=== PATIENT | male | born 1975 | race Caucasian/White ===

== ENCOUNTER 2018-10-27 19:52 | Inpatient (IN) | payer OTHER ==
[~2018-10-27] VITALS: Ht 190.5 cm; Wt 105.2 kg
[2018-10-27 20:10] VITALS: BP 108/66
[2018-10-27] MEDS ORDERED: NOHOMEMEDICATIONS (20:12)
[2018-10-27 20:21] LABS: HEMOGLOBIN 13.5 gm/dL (14.0-18.0); MCH 31.3 pg (26.0-34.0); MCHC 34.8 g/dL (28.0-37.0); MCV 89.9 fL (80.0-100.0); MPV 8.6 fl. (7.2-11.1); NUCLEATED RBCS 0 /100WBC; PLATELET COUNT* 379 thou/uL (150-400); RBC 4.33 mil/uL (4.50-6.00); RDW-CV 12.7 % (10.5-14.5); WBC 16.7 thou/uL (4.0-11.0)
[2018-10-27 20:30] LABS: URINE BLOOD TRACE (Negative); URINE CLARITY CLEAR; URINE COLOR YELLOW; URINE GLUCOSE-RANDOM NEGATIVE (Negative); URINE KETONES NEGATIVE (Negative); URINE LEUKOCYTES-REFLEX NEGATIVE (Negative); URINE NITRITE-REFLEX NEGATIVE (Negative); URINE PROTEIN 1+ (Negative); URINE SPECIFIC GRAVITY 1.025 (1.005-1.030); URINE UROBILINOGEN 0.2 E.U./dl (0.2-1.0)
[2018-10-27 20:33] LABS: ALBUMIN 2.5 g/dL (3.4-5.0); CALCIUM 8.6 mg/dL (8.5-10.1); CREATININE 1.2 mg/dL (0.6-1.3); POTASSIUM 3.9 mmol/L (3.5-5.1); TOTAL BILIRUBIN 0.7 mg/dL (<0.1-1.0); TOTAL PROTEIN 8.2 g/dL (6.4-8.2)
[2018-10-27 20:37] LABS: ICTOTEST (BILI CONFIRMATORY) Negative (Negative); URINE BILIRUBIN 1+ (Negative)
[2018-10-27 20:41] LABS: ABSOLUTE LYMPHOCYTES 1.7 thou/uL (0.8-5.3); ABSOLUTE MONOCYTES 0.8 thou/uL (0.0-1.2); ABSOLUTE NEUTROPHILS 14.2 thou/uL (1.6-8.1); PLATELET ESTIMATE ADEQUATE
[2018-10-27 20:53] LABS: SQUAMOUS 0-3 Few /LPF (0-3)
[2018-10-27 20:54] LABS: BACTERIA-REFLEX 1-9 Few /HPF (None Seen); CASTS None Seen /LPF (None Seen); CRYSTALS None Seen /LPF (None Seen); URINE RBC 0-2 Rare /HPF (0-2); URINE WBC-REFLEX 0-5 Rare /HPF (0-5)
[2018-10-27 23:26] LABS: APTT 26.6 Seconds (25.0-31.3); INR 1.1; PROTIME 11.4 Seconds (9.20-11.50)
[2018-10-27 23:54] VITALS: BP 100/64
[2018-10-28] VITALS (16 sets, daily range): BP systolic 80–107; BP diastolic 43–72
--- NOTE | 2018-10-28 03:37 | NUR ---
PT ARRIVED FROM ER AROUND 0000 WITH AT BEDSIDE, AND WALKED OVER TO BED WITH NO ISSUES. ASSESSMENT COMPLETED CHARTED. ABLE TO MAKE NEEDS KNOWN. UP AD CHANTE. C/O MILD PAIN AFTER PAIN MEDICATION FROM ER. PT RESTING IN BED AT THIS TIME. GIVEN PRN PAIN MEDICATIONS PER REQUEST. WILL CONTINUE TO MONITOR.
[2018-10-28 05:07] LABS: HEMATOCRIT 35.1 % (42.0-52.0); HEMOGLOBIN 11.7 gm/dL (14.0-18.0); MCH 30.5 pg (26.0-34.0); MCHC 33.4 g/dL (28.0-37.0); MCV 91.3 fL (80.0-100.0); MPV 8.9 fl. (7.2-11.1); RBC 3.85 mil/uL (4.50-6.00); RDW-CV 12.8 % (10.5-14.5); WBC 14.5 thou/uL (4.0-11.0)
[2018-10-28 05:51] LABS: ALBUMIN 1.9 g/dL (3.4-5.0); CALCIUM 7.8 mg/dL (8.5-10.1); CREATININE 1.1 mg/dL (0.6-1.3); MAGNESIUM 1.8 mg/dL (1.8-2.4); POTASSIUM 3.7 mmol/L (3.5-5.1); TOTAL BILIRUBIN 0.6 mg/dL (<0.1-1.0); TOTAL PROTEIN 7.1 g/dL (6.4-8.2)
--- NOTE | 2018-10-28 10:48 | EKG ---
[place] [address] ELECTROCARDIOGRAM REPORT Name: HUTCHINSONENLSON Room: [address] ADM IN .R.#: [id number] Admission: 10/27/18 Attend Phys: John West DO Discharge: Date of : 77 Report #: [id number] THIS REPORT FOR: //name// [facility] ED Test Date: 2018-10-27 Test Time: 22:13:20 Pat Name: NELSON HUTCHINSON Department: Room: [facility] Gender: M Hebrew Teacher: JULIO CESAR : 1975 Requested By: Francine Hinlke Order Number: [id number] MD: Demar Chapin Measurements Intervals [place] Rate: 92 P: 28 WI: 125 QRS: 10 QRSD: 87 T: 37 QT: 349 QTc: 432 Interpretive Statements Sinus rhythm RSR' in V1 or V2, probably normal variant No previous ECG available for comparison Electronically Signed On 10-28-2018 10:48:22 CDT by Demar Chapin [email or web address] <ELECTRONICALLY SIGNED> By: Demar Chapin MD, [facility] 10/28/18 1048 2213 12 Demar Chapin MD, FACC /EPI
--- NOTE | 2018-10-28 16:17 | NUR ---
PT PROGRESSING TOWARDS GOALS THIS SHIFT. DRAIN PLACED TO ABCESS TODAY. DEPENDENT DRAINAGE WITHOUT DIFFICULTY. PAIN MANAGED WITH PRN DILAUDID. PRN TORADOL ADDED TO ASSIST WITH PAIN MANAGEMENT AND FEVERS. T-MAX 102 THIS SHIFT. NO OTHER CONCERNS AT THIS TIME. CLWR. WCTM.
[2018-10-29 04:39] LABS: HEMATOCRIT 38.7 % (42.0-52.0); HEMOGLOBIN 12.8 gm/dL (14.0-18.0); MCH 30.5 pg (26.0-34.0); MCV 92.2 fL (80.0-100.0); RBC 4.2 mil/uL (4.50-6.00); WBC 15.7 thou/uL (4.0-11.0)
[2018-10-29 04:47] LABS: CALCIUM 8.3 mg/dL (8.5-10.1); CREATININE 1.3 mg/dL (0.6-1.3); MAGNESIUM 2.1 mg/dL (1.8-2.4); PHOSPHORUS* 4.1 mg/dL (2.5-4.9); POTASSIUM 3.5 mmol/L (3.5-5.1); TOTAL BILIRUBIN 0.5 mg/dL (<0.1-1.0); TOTAL PROTEIN 7.1 g/dL (6.4-8.2)
[2018-10-29 07:27] VITALS: BP 98/63
--- NOTE | 2018-10-29 14:00 | NUR ---
ASSUMED CARE OF PT AROUND 0730 THIS AM.REFER TO ASSESSMENT. PT PAIN MANAGED WITH PRN PAIN MEDICATION. TOLERATING CLEAR LIQUID DIET. REPORT GIVEN TO RECEIVING RN AT THIS TIME. NO OTHER CONCERNS AT THIS TIME. CLWR. WCTM.
--- NOTE | 2018-10-29 17:06 | NUR ---
ASSUMED CARE OF PATIENT AT APPROX 1400. PATIENT REMAINS ALERT AND OREINTED X4. VITALS REMAIN STABLE ON ROOM AIR. COMPLAINT OF PAIN ADDRESSED WITH IV DILAUDID. NO OTHER COMPLAINTS AT THIS TIME. RESTING COMFORTABLY IN BED. FLUIDS AND ANTIBIOTICS INFUSING ORDERED. HOURLY ROUNDS COMPLETED. CALL LIGHT WITHIN REACH. NURSING WILL CONTINUE TO MONITOR.
[2018-10-29 20:00] VITALS: BP 108/67
--- NOTE | 2018-10-30 03:05 | NUR ---
RECIEVED REPORT AND ASSUMED CARE AT 1900. VITAL SIGNS WERE STABLE. PT IS UP ADLIB. PT HAS SOME LOWER RIGHT ABD PAIN AND PRN PAIN MEDS GIVEN ORDERED. ASSESSMENT COMPLETED DISCUSSED PLAN OF CARE AND PT UNDERSTANDS. BED LOCKED AND CALL LIGHT WITHIN REACH. HOURLY ROUNDING DONE AND ALL NEEDS MET. NURSING WILL CONTINUE TO MONITOR.
[2018-10-30 07:11] LABS: HEMATOCRIT 39.2 % (42.0-52.0); HEMOGLOBIN 13.3 gm/dL (14.0-18.0); MCH 30.8 pg (26.0-34.0); MCHC 33.9 g/dL (28.0-37.0); MCV 90.7 fL (80.0-100.0); RBC 4.33 mil/uL (4.50-6.00); RDW-CV 12.9 % (10.5-14.5); WBC 15.8 thou/uL (4.0-11.0)
[2018-10-30 07:25] LABS: CALCIUM 8.1 mg/dL (8.5-10.1); CREATININE 1.2 mg/dL (0.6-1.3); MAGNESIUM 1.9 mg/dL (1.8-2.4); PHOSPHORUS* 3.6 mg/dL (2.5-4.9); POTASSIUM 3.5 mmol/L (3.5-5.1); TOTAL BILIRUBIN 0.4 mg/dL (<0.1-1.0); TOTAL PROTEIN 7.2 g/dL (6.4-8.2)
[2018-10-30 08:00] VITALS: BP 108/68
--- NOTE | 2018-10-30 12:28 | NUR ---
AM ASSESSMENT AND VITAL SIGNS COMPLETED DOCUMENTED. PT HAS HYPOACTIVE BOWEL SOUNDS, ABDOMEN IS ROUND, POSSIBLY DISTENDED. PRN PAIN AND NAUSEA MEDICATIONS GIVEN. SCHEDULED PROTONIX AND REGLAN STARTED TODAY. PT ENCOURAGED TO WALK IN THE HALLS FREQUENTLY TO INCREASE BOWEL MOTILITY. HOURLY ROUNDING CONTINUES.
[2018-10-30 13:32] VITALS: BP 110/71
--- NOTE | 2018-10-30 14:25 | NUR ---
PT.RESTING IN BED. HE SAID HE LIVES WITH HIS AND CHILDREN. IS NORMALLY INDEPENDENT. WORKS PARTS DEPARTMENT SUPERVISOR. HAS QUESTIONS ABOUT WHEN HE'LL HAVE SURGERY, WHEN HE CAN RETURN TO WORK,ETC. TOLD HIM HIS WOULD BE THE BEST ONE TO ASK THOSE QUESTIONS. GAVE HIM A PACKET FOR THE UNINSURED. TOLD HIM HE COULD ALSO OBTAIN A TRACEY APPLICATION FROM ADMITTING. HE SAID HE WOULD BE GLAD TO SET UP A PAYMENT PLAN OR WHATEVER HE NEEDS TO DO. TOLD HIM TO CALL BUSINESS OFFICE WHEN RECEIVES FIRST BILL. PASSED ALONG HIS QUESTIONS TO NURSING.
[2018-10-30 22:45] VITALS: BP 95/56
[2018-10-31 00:30] VITALS: BP 113/61
[2018-10-31 04:00] VITALS: BP 103/67
[2018-10-31 04:03] LABS: HEMATOCRIT 39.6 % (42.0-52.0); HEMOGLOBIN 13.3 gm/dL (14.0-18.0); MCH 30.3 pg (26.0-34.0); MCHC 33.6 g/dL (28.0-37.0); MCV 90.1 fL (80.0-100.0); MPV 8.4 fl. (7.2-11.1); NUCLEATED RBCS 0 /100WBC; PLATELET COUNT* 414 thou/uL (150-400); RDW-CV 13.1 % (10.5-14.5); WBC 13.1 thou/uL (4.0-11.0)
[2018-10-31 04:22] LABS: CALCIUM 8.3 mg/dL (8.5-10.1); CREATININE 1.3 mg/dL (0.6-1.3); MAGNESIUM 1.8 mg/dL (1.8-2.4); PHOSPHORUS* 4.2 mg/dL (2.5-4.9); POTASSIUM 3.2 mmol/L (3.5-5.1)
[2018-10-31 05:39] LABS: ABSOLUTE MONOCYTES 0.9 thou/uL (0.0-1.2); ABSOLUTE NEUTROPHILS 11.1 thou/uL (1.6-8.1); ATYPICAL LYMPHS 1 %; PLATELET ESTIMATE INCREASED
[2018-10-31 07:40] VITALS: BP 105/68
--- NOTE | 2018-10-31 07:58 | NUR ---
PATIENT HAS SLEPT WELL MOST OF THE NIGHT. VSS ON RA. PAIN CONTROLLED WITH ORAL PAIN MEDICATION AND PAIN HAS BEEN LOW PER PATIENT. GRAVITY DRAIN IN PLACE WITH MODERATE GREEN DRAINAGE. PATIENT REMAINS ON CLEAR LIQUID DIET AT THIS TIME WITH ICE CHIPS. NO NAUSEA OR VOMITING. IV IN LEFT AC-D5 1/2 NS @ 75ML/HR. NO NAUSEA OR VOMITING. PATIENT INSTRUCTED TO USE CALL LIGHT WHEN NEEDING ASSISTANCE. HOURLY ROUNDS MADE. WILL CONTINUE WITH PLAN OF CARE AND NURSING TO MONITOR.
[2018-10-31 15:46] VITALS: BP 100/64
--- NOTE | 2018-10-31 17:28 | NUR ---
ASSUMED CARE OF PATIENT AT APPROX 0730. ALERT AND ORIENTED X4. ASSESSMENT COMPLETED AND CHARTED. VSS ON ROOM AIR. NO COMPLAINTS OF NAUSEA AND TOLERATED CLEAR LIQUID DIET. FLUIDS AND ANTIBIOTICS INFUSED ORDERED. POTASSIUM REPLACED ORDERED. PAIN HAS BEEN MINIMAL AND MANAGED WITH CONSERVATIVE ORAL PAIN MEDICATION. PATIENT UP AD CHANTE. MINIMAL PURULENT DRAINAGE OF 50CC OUT OF ABDOMINAL DRAIN THIS SHIFT. HOURLY ROUNDS COMPLETED. CALL LIGHT WITHIN REACH. NURSING WILL CONTINUE TO MONITOR.
[2018-11-01 04:30] LABS: HEMOGLOBIN 13.8 gm/dL (14.0-18.0); MCH 30.5 pg (26.0-34.0); MCHC 33.7 g/dL (28.0-37.0); MCV 90.4 fL (80.0-100.0); MPV 8.3 fl. (7.2-11.1); RBC 4.53 mil/uL (4.50-6.00); RDW-CV 12.9 % (10.5-14.5); WBC 13.8 thou/uL (4.0-11.0)
[2018-11-01 04:44] LABS: CALCIUM 8.2 mg/dL (8.5-10.1); CREATININE 1.3 mg/dL (0.6-1.3); PHOSPHORUS* 4.3 mg/dL (2.5-4.9); POTASSIUM 3.7 mmol/L (3.5-5.1)
--- NOTE | 2018-11-01 06:48 | NUR ---
PATIENT HAS SLEPT WELL THROUGHOUT THE NIGHT. VSS ON RA. PAIN CONTROLLED WITH ORAL AND IV MEDICATIONS AND CHARTED. PATIENT IS UP AD-CHANTE AND STEADY. PATIENT HAS REMAINED NPO SINCE MIDNIGHT. GRAVITY DRAIN IN PLACE WITH MODERATE AMOUNT OF DRAINAGE. IV IN LEFT AC-D5 NS @75ML/HR. PATIENT INSTRUCTED TO USE CALL LIGHT WHEN NEEDING ASSISTANCE. HOURLY ROUNDS MADE. WILL CONTINUE WITH PLAN OF CARE AND NURSING TO MONITOR.
[2018-11-01 08:10] VITALS: BP 105/61
[2018-11-01 17:02] VITALS: BP 117/69
--- NOTE | 2018-11-01 18:34 | NUR ---
ASSUMED CARE OF PATIENT AT APPROXM 0730. ALERT AND ORIENTED X4. ASSESSMENT COMPLETED AND CHARTED. VSS ON ROOM AIR. MINIMAL COMPLAINTS OF PAIN AND GIVEN ORAL AND IV MEDICATION TODAY. FLUIDS AND ANTIBIOTICS INFUSED ORDERED. MINIMAL DRAINAGE FROM GRAVITY DRAIN TODAY, COLOR OF DRAINAGE CHANGED FROM A PURULENT TO A GREENISH COLOR. DIET ADVANCED TO FULL LIQUIDS AND TOLERATING WELL. PATIENT UP AD CHANTE. HOURLY ROUNDS COMPLETED. CALL LIGHT WITHIN REACH. NURSING WILL CONTINUE TO MONITOR.
[2018-11-01 21:45] VITALS: BP 117/61
--- NOTE | 2018-11-02 03:52 | NUR ---
ASSUMED CARE AT START OF SHIFT PT RESTING WELL DENIES PAIN , VOIDING WELL DRAIN WITH SCANT AMOUNT OF GREEN LIKE OUTPUT, IV FLUIDS INFUSING WELL. NO CHANGES NOTED IN EARLIER ASSESSMENT, RESTED WELL THROUHGOUT HOURLY ROUNDS.
[2018-11-02 04:15] LABS: HEMATOCRIT 38.3 % (42.0-52.0); HEMOGLOBIN 12.8 gm/dL (14.0-18.0); MCH 30.5 pg (26.0-34.0); MCHC 33.4 g/dL (28.0-37.0); MCV 91.1 fL (80.0-100.0); MPV 8.3 fl. (7.2-11.1); RBC 4.21 mil/uL (4.50-6.00); WBC 10.2 thou/uL (4.0-11.0)
[2018-11-02 04:26] LABS: CALCIUM 8.4 mg/dL (8.5-10.1); CREATININE 1.2 mg/dL (0.6-1.3); MAGNESIUM 2.1 mg/dL (1.8-2.4); PHOSPHORUS* 4.1 mg/dL (2.5-4.9); POTASSIUM 3.2 mmol/L (3.5-5.1)
[2018-11-02 08:30] VITALS: BP 116/79
--- NOTE | 2018-11-02 14:49 | NUR ---
DISCUSSED ANTIBIOTICS WITH AND COSTS OF THEM. SHE IS ZOILA TO PRESCRIBE THE ONES HE WILL GO HOME HOME ON TO TAKE HERE FOR ONE DAY. SHE SPOKE WITH PATIENT.
[2018-11-02 15:45] VITALS: BP 117/59
--- NOTE | 2018-11-02 19:32 | NUR ---
I ASSUMED CARE OF THE PATIENT AT 0700. HE IS ALERT AND ORIENTED X4 AND IS UP AD CHANTE. BED IS IN THE LOW LOCKED POSITION AND CALL LIGHT IS IN REACH. HOURLY ROUNDING IS COMPLETED AND PATIENT NEEDS ARE MET. PAIN IS DENIED. FAMILY IS AT THE BEDSIDE OFF AND ON. PATIENT EDUCATION IS COMPLETED. CELLULITIS ON RIGHT SIDE IS MARKED AND PATIENT IS PROGRESSING TOWARD GOALS.
[2018-11-02 19:50] VITALS: BP 118/69
[2018-11-03 04:28] LABS: HEMATOCRIT 37.6 % (42.0-52.0); HEMOGLOBIN 12.9 gm/dL (14.0-18.0); MCH 30.9 pg (26.0-34.0); MCHC 34.2 g/dL (28.0-37.0); MCV 90.3 fL (80.0-100.0); RBC 4.17 mil/uL (4.50-6.00); RDW-CV 13.1 % (10.5-14.5); WBC 10.2 thou/uL (4.0-11.0)
[2018-11-03 04:34] LABS: CALCIUM 8.7 mg/dL (8.5-10.1); POTASSIUM 3.3 mmol/L (3.5-5.1)
[2018-11-03 08:33] VITALS: BP 112/65
--- NOTE | 2018-11-03 09:00 | NUR ---
REC'D REPORT FROM NOC RN, ASSUMED CARE OF PATIENT APPROX 0730. A&OX4, ABLE TO COMMUNICATE NEEDS TO STAFF. ASSESSMENT COMPLETE AND VS OBTAINED. MED/SURG STATUS. O2 SATS 97% RA. UP AD CHANTE IN ROOM AND HALLWAY WITH NONSKID SHOES ON BLE. C/O MILD PAIN 2/10 IN R ABD NEAR DRAIN SITE. ATE APPROX 1/2 OF HIS BREAKFAST. STATES NO NAUSEA OR PAIN AFTER BREAKFAST. CALL LIGHT WITHIN REACH. HOURLY ROUNDING FOR SAFETY AND PATIENT NEEDS.
[2018-11-03 15:12] VITALS: BP 112/65
[2018-11-03] MEDS ORDERED: OXYCODONE HCL 55 MG PO (15:25)
[2018-11-03] MEDS ORDERED: FLAGYL500 M1 PO (15:27)
[2018-11-03] MEDS ORDERED: BACTRIM DS TAB1 EACH PO (15:29)
== END 2018-11-03 15:55 | disposition home or self-care (01) | DRG 372 ==
LOC: M.ERS 19:52 → M.TBA-ER 22:47 → M.ERS 22:47 → M.ORTHSURG 23:07 → M.TBA-ER 23:07 → M.ORTHSURG 10-28
PROVIDERS: Nurse Practitioner Family; Surgery; ADMIT Surgery
PROC: 0H97X0Z Drainage of Abdomen Skin with Drainage Device, External Approach (ICD-10-PCS; principal; 2018-10-28)
DX: K35.33 Acute appendicitis with perforation, localized peritonitis, and gangrene, with abscess (principal); K56.609 Unspecified intestinal obstruction, unspecified as to partial versus complete obstruction; F17.210 Nicotine dependence, cigarettes, uncomplicated; Z79.899 Other long term (current) drug therapy

== ENCOUNTER → 2018-12-26 | Day surgery (SDC) | payer OTHER ==
[~2018-12-26] MED LIST: BACTRIM DS TAB1 EACH PO; FLAGYL500 M1 PO; NOHOMEMEDICATIONS; OXYCODONE HCL 55 MG PO
[2018-12-26 07:57] LABS: HEMOGLOBIN 15.4 gm/dL (14.0-18.0); MCH 31.8 pg (26.0-34.0); MCHC 35.1 g/dL (28.0-37.0); MCV 90.7 fL (80.0-100.0); RBC 4.85 mil/uL (4.50-6.00); RDW-CV 14.1 % (10.5-14.5); WBC 7.5 thou/uL (4.0-11.0)
[2018-12-26 08:08] LABS: CALCIUM 8.8 mg/dL (8.5-10.1); POTASSIUM 4.3 mmol/L (3.5-5.1)
[2018-12-26 08:12] LABS: ALBUMIN 3.5 g/dL (3.4-5.0); TOTAL BILIRUBIN 0.4 mg/dL (<0.1-1.0)
--- NOTE | 2018-12-28 13:07 | PATH ---
[address] [address] PATHOLOGY RPT PROCEDURE Name: NELSON HOWARD Room: [facility] M.R.#: [id number] Admission: 12/26/18 Date of : 77 Discharge: Report #: [id number] Path Case #: [id number] [facility] Accession Number: [id number] . 01 Material submitted: . appendix - APPENDIX . 01 Clinician provided ICD-10: K35.32 . 01 Clinical history: . Perforated appendicitis . 02 Diagnosis: Appendix: - Acute appendicitis, periappendicitis and serositis with evidence of perforation including focal foreign body type granulomatous response. See comment. (KERVIN/db; 12/27/2018) LBQ/12/28/2018 . 02 Comment: Review of Dr. Williamson's operative report dated 12/26/2018 reveals an intraoperative finding of a recent perforated appendicitis with the appendix base found to be completely separate from the body of the appendix. (KERVIN/db; 12/27/2018) . 02 Electronically signed: . Bernabe Caraballo MD, Pathologist NPI- [id number] . 01 Gross description: . Received in formalin, labeled "Nelson Howard, appendix", is an intact appendix (3.2 cm length x 0.5 cm diameter) and attached mesoappendix (4.2 x 1.6 x 1.0 cm). The proximal resection margin is closed by cautery artifacts and the proximal mesoappendix by a linear staple line measuring 1.5 cm in length. These and the adjacent serosa is inked black. The serosa is carvalho-brown with no discrete perforation. The lumen is not dilated. The wall has an average thickness of 0.2 cm. No discrete fecal material or fecalith is identified. The heidi-appendiceal soft tissue has a yellow cut surface. The specimen is entirely submitted as follows: A1. Proximal margin and contiguous cross sections. A2. Mid appendix, contiguous section. A3. Distal appendix, perpendicular bisected. ([facility]; 12/26/2018) [facility] . 02 Pathologist provided ICD-10: [place] [address] PATHOLOGY RPT PROCEDURE Name: NELSON HOWARD Room: [facility]#: [id number] Admission: 12/26/18 Date of : 77 Discharge: Report #: [id number] Path Case #: [id number] K35.80 . 02 [facility] . [id number] Specimen Comment: A courtesy copy of this report has been sent to Specimen Comment: [phone]. Specimen Comment: Report sent to Performed at: [address], [place] [id number] MD Vidal Nicole MD Phone: [phone] Performed at: [address] [facility] [address], [place], [place] [id number] MD Bernabe Caraballo MD Phone: [phone]
--- NOTE | 2018-12-30 11:05 | OP ---
[address] [address] OPERATIVE REPORT Name: NELSON HUTCHINSON Room: [facility].#: [id number] Admission: 12/26/18 Attend Phys: Krista Williamson DO Discharge: Date of : 77 Report #: [id number] THIS REPORT FOR: //name// CC: Krista OJEDA physician/PCP DATE OF SERVICE: 12/26/2018 PREOPERATIVE DIAGNOSIS: Recent perforated appendicitis. POSTOPERATIVE DIAGNOSIS: Recent perforated appendicitis. FINDINGS: Evidence of old abscess in the right lower quadrant. There were multiple dense adhesions between the small bowel in the right lower quadrant. Appendix base was found to be completely separate from the body of the appendix. SURGEON: Krista Williamson D.O. CO-SURGEON: Edda Salmon, PGY1. [employer] ADMINISTRATOR: DORETHA Cortez, student. PROCEDURE PERFORMED: Laparoscopic appendectomy and lysis of adhesions, less than 30 minutes. ANESTHESIA: General endotracheal and local. ESTIMATED BLOOD LOSS: 3. DRAINS: None. SPECIMENS: Appendix. COMPLICATIONS: None. CONDITION: Stable. DISPOSITION: PACU to home. HISTORY OF PRESENT ILLNESS: The patient is a very pleasant 43-year-old gentleman, who presented to the hospital approximately 8 weeks ago with about a week of abdominal pain. He was found on CAT scan to have perforated appendicitis with a very large contained abscess in the right lower quadrant. He was admitted to the hospital and underwent successful IR drainage of the abscess. He completed a course of antibiotics and was discharged to home. He has done well in the preceding weeks and is now ready [place] [address] OPERATIVE REPORT Name: NELSON HUTCHINSON [id number] Admission: 12/26/18 Attend Phys: Krista Williamson DO Discharge: Date of : 77 Report #: [id number] discussed included bleeding, infection, pain, scar formation, injury to bowel or bladder, need for an open procedure, need for further surgery and risks of general anesthesia. The patient understood these risks and elected to proceed. DESCRIPTION OF PROCEDURE: The patient was brought to the operating room. He was laid supine on the operating room table. SCDs were placed on bilateral lower extremities. Ancef was given in the perioperative period. General endotracheal anesthesia was induced by anesthesia without difficulty. Abdomen was prepped and draped in standard sterile fashion. Timeout was performed to verify patient and procedure. 10 mL of 0.5% Marcaine were injected in the infraumbilical area. Incision was made with #11 blade. Cautery was used for hemostasis. S retractors were used to visualize the fascia. Fascia was grasped and elevated between 2 Kochers. Fascia was incised using cautery. Peritoneum was tented between 2 Corina clamps and was incised using Metzenbaums. Finger was gently introduced into the abdomen to assure that there were no heidi-incisional adhesions, none were identified. Two stitches of 0 Vicryl placed on the fascia. Victor Hugo trocar was introduced and secured with 0 Vicryl stitches. Abdomen was insufflated. The patient was placed head down. Camera was introduced and a brief anterior abdominal exploration was undertaken with findings of some dense adhesions in the right lower quadrant and evidence of previous abscess. A portion of the appendix could be visualized in the area of the previous abscess. Two 5 mm trocars were then introduced, one in the left lower quadrant, one in the suprapubic area. The distal ileum was quite densely adhesed to the right lower quadrant. Using a combination of blunt and very gentle scissor dissection, the terminal ileum was completely freed from the right lower quadrant. Evidence of an old abscess still remained in this area with some thick fluid, which was easily suctioned away. There were also some adhesions between the remainder of the small bowel and the terminal ileum. These were all gently lysed using scissors. At this point, I could then visualize the cecum and the base of the appendix. The base of the appendix was completely separate from the body of the appendix. There was approximately 1 inch of the base of the appendix still visible. It was gently elevated and freed from the surrounding tissues. It was then transected from the cecum using a 45 mm purple load Endo-YEYO stapler. The base of the appendix was gently placed in the corner of the right lower quadrant while we returned our attention to freeing the rest of the appendix. The body of the appendix was then elevated and freed from their surrounding tissues. The mesentery of the body of the appendix was then taken with a single load of a 45 mm purple Endo-YEYO stapler. Both specimens were then placed within an EndoCatch bag. Staple lines were inspected. They appeared to be intact. There was no bleeding or leakage noted from the area of the staple lines. Right lower quadrant in the area of the old abscess was copiously irrigated until clear. Cecum and small bowel were then allowed to fall into their anatomical position. Omentum was brought down into the pelvis. Trocars were then removed under direct visualization. There was no bleeding noted from the peritoneum. Trocars were then removed under direct visualization. Victor Hugo trocar was then removed and [place] [address] OPERATIVE REPORT Name: NELSON HUTCHINSON Room: [facility]#: [id number] Admission: 12/26/18 Attend Phys: Krista Williamson DO Discharge: Date of : 77 Report #: [id number] with specimen intact. Specimens were handed off for permanent pathology. Kochers were then placed on the fascia of our infraumbilical port. Previously placed 0 Vicryl stitches were removed and a 0 Vicryl stitch was placed in [id number] fashion with excellent approximation of the fascia. Additional 10 mL of 0.5% Marcaine were injected in the fascia. This wound was closed in a layered fashion using deep and superficial stitches of 3-0 Vicryl in an inverted interrupted fashion. All skin wounds were closed with 4-0 Monocryl. A total of 50 mL of 0.5% Marcaine was used to anesthetize the wounds. Wounds were then cleansed and covered with Mastisol, Steri-Strips, 4 x 4's, and a Tegaderm. The patient was then allowed to awaken from anesthesia, was extubated and transported to the recovery room with no further difficulties. Counts were correct x 2 at the conclusion of the case. <ELECTRONICALLY SIGNED> By: Krista Williamson DO 12/30/18 1105 1021 [id number] Williamson, DO /nt
== END | disposition home or self-care (01) ==
LOC: M.SUR 07:17
PROVIDERS: Surgery
DX: K35.33 Acute appendicitis with perforation, localized peritonitis, and gangrene, with abscess (principal); F17.210 Nicotine dependence, cigarettes, uncomplicated; Z79.891 Long term (current) use of opiate analgesic